=== PATIENT | male | born 1975 | race African-American/Black ===

== ENCOUNTER 2017-08-24 18:23 | Emergency (ER) | payer OTHER ==
--- NOTE | 2017-08-24 19:21 | EDM.PDOC ---
ED HPI GENERAL MEDICAL PROBLEM - General Chief Complaint: General Stated Complaint: COLD Time Seen by Provider: 08/24/17 19:00 - History of Present Illness INITIAL COMMENTS - FREE TEXT/NARRATIVE: HISTORY AND PHYSICAL: History of present illness: Patient's 42-year-old black male presents with a concern of cold symptoms and requesting a note for work. He denies fever chills nausea vomiting states his congestion cold symptoms have improved dramatically Review of systems: As per history of present illness and below otherwise all systems reviewed and negative. Past medical history: As per history of present illness and as reviewed below otherwise noncontributory. Surgical history: As per history of present illness and as reviewed below otherwise noncontributory. Social history: No reported history of drug or alcohol abuse. Family history: As per history of present illness and as reviewed below otherwise noncontributory. Physical exam: HEENT: Atraumatic, normocephalic, pupils reactive, negative for conjunctival pallor or scleral icterus, mucous membranes moist, throat clear, neck supple, nontender, trachea midline. Lungs: Clear to auscultation, breath sounds equal bilaterally, chest nontender. Heart: S1S2, regular, negative for clicks, rubs, or JVD. Abdomen: Soft, nondistended, nontender. Negative for masses or hepatosplenomegaly. Negative for costovertebral tenderness. Pelvis: Stable nontender. Genitourinary: Deferred. Rectal: Deferred. Extremities: Atraumatic, negative for cords or calf pain. Neurovascular unremarkable. Neuro: Awake, alert, oriented. Cranial nerves II through XII unremarkable. Cerebellum unremarkable. Motor and sensory unremarkable throughout. Exam nonfocal. Diagnostics: Deferred Therapeutics: None Impression: #1 viral syndrome resolving #2 medical screening exam Definitive disposition and diagnosis as appropriate pending reevaluation and review of above. - Related Data Allergies Allergy/AdvReac Type Severity Reaction Status Date / Time No Known Allergies Allergy Verified 08/24/17 18:46 Home Meds: Home Meds . [No Known Home Meds] 08/24/17 [History] Past Medical History - Past Health History Medical/Surgical History: Denies Medical/Surgical History Social & Family History - Family History Family Medical History: Noncontributory - Tobacco Use Smoking Status *Q: Never Smoker - Recreational Drug Use Recreational Drug Use: No ED ROS GENERAL - Review of Systems Review Of Systems: ROS reveals no pertinent complaints other than HPI. ED EXAM, GENERAL - Physical Exam Exam: See Below (See dictation) Course - Vital Signs Last Recorded V/S: Last Vital Signs Temp 36.9 C 08/24/17 18:46 Pulse 75 08/24/17 19:00 Resp 20 08/24/17 19:00 BP 130/87 08/24/17 19:00 Pulse Ox 97 08/24/17 19:00 Departure - Departure Time of Disposition: 19:20 Disposition: Home, Self-Care 01 Condition: Good Clinical Impression: Encounter for medical screening examination, Viral syndrome - Discharge Information Instructions: Viral Respiratory Infection Referrals: PCP,None [Primary Care Provider] - Forms: ED Department Discharge Additional Instructions: Please return to ER as need as discussed. Follow up with primary care.
== END 2017-08-24 19:02 | disposition home or self-care (01) ==
LOC: MW.ED 18:23
DX: B34.9 Viral infection, unspecified (principal)
CPT/HCPCS: 99282